=== PATIENT | male | born 1975 | race Caucasian/White ===

== ENCOUNTER 2017-05-23 05:36 | Outpatient (CLI) | payer OTHER ==
[~2017-05-23] VITALS: Ht 185.4 cm; Wt 97.5 kg
== END 2017-05-23 09:41 ==
LOC: PREOP 05:36
PROVIDERS: ATTEND Surgery
DX: Z01.818 Encounter for other preprocedural examination (principal); Z12.11 Encounter for screening for malignant neoplasm of colon

== ENCOUNTER 2017-05-25 07:08 | Day surgery (SDC) | payer OTHER ==
[~2017-05-25] VITALS: Ht 185.4 cm; Wt 97.5 kg
[2017-05-25] MEDS ORDERED: NS IV 500 ML 500 ML IV PRN (07:20)
[2017-05-25 07:35] VITALS: BP 147/91
[2017-05-25] MEDS ORDERED: MIDAZOLAM 2 MG/2 ML (VERSED) VIAL ONE ×4 (07:52→07:53)
[2017-05-25] MEDS ORDERED: fentaNYL INJECTION 100 MCG/2 ML AMP ONE ×2 (07:52)
--- NOTE | 2017-05-25 07:55 | Conscious Sedation/ASA ---
Conscious Sedation Pre-Proced Time Reviewed: 07:55 ASA Class: 1 Airway Mallampati Classification: (poarch appropriate class) I. II. III, IV Lungs Heart ASA score ASA 1: a normal healthy patient ASA 2: a patient with a mild systemic disease (mid diabetes, controlled hypertension, obesity ASA 3: a patient with a severe systemic disease that limits activity (angina , COPD, prior Myocardial infarction) ASA 4: a patient with an incapacitating disease that is a constant threat to life (CHF, renal failure) ASA 5: a moribund patient not expected to survive 24 hrs. (ruptured aneurysm) ASA 6: a declared brain patient whose organs are being harvested. For emergent operations, add the letter E after the classification Grade 1 Sedation Plan: Discussed options with patient/fam Note The patient is an appropriate candidate to undergo the planned procedure, sedation, and anesthesia. The patient immediately re-assessed prior to indication. COREY PENNY MD May 25, 2017 7:55 am
[2017-05-25] MEDS: fentaNYL INJECTION 100 MCG/2 ML AMP IVP PRN ×2 (07:58→08:01)
[2017-05-25] MEDS: MIDAZOLAM 2 MG/2 ML (VERSED) VIAL IVP PRN ×3 (08:00→08:04)
--- NOTE | 2017-05-25 08:13 | Endo Procedure Record ---
Endo Procedure Report Date of Procedure May 25, 2017 Surgeon (s) COREY PENNY MD Post Procedure/Op Diagnosis normal colonoscopy Procedure Performed colonoscopy to cecum Description of Procedure Anesthesia Type: Conscious Sedation Specimen(s) collected/removed none Description of the Procedure Indication for procedure: This gentleman came in for a screening colonoscopy. His father suffered colon cancer in his early 50s. Informed consent was obtained after reviewing the procedure in detail. Description of procedure: He was placed in left lateral edematous position and his vital signs were monitored. Conscious sedation was achieved using Versed and fentanyl. Digital rectal examination was unremarkable. The colonoscope was then introduced into the rectum and advanced all the way up to the cecum. the scope was then withdrawn slowly and the mucosa examined in a systematic fashion. There was no abnormality He tolerated the procedure well and was taken back to the nursing area in a stable condition Impression: Normal screening colonoscopy. Positive family history. Recommend repeating in 5 years and of dictation Copies To: ALLIE CONNER XAVIER M MD May 25, 2017 8:13 am
--- NOTE | 2017-05-25 08:14 | Discharge Inst-Simple/Standard ---
Discharge Inst-Standard Discharge Medications New, Converted or Re-Newed RX: Other Patient Instructions/Follow Up Plan of Care/Instructions/FU: repeat colonoscopy in 5 years. To return for hernia surgery as scheduled Activity as Tolerated: Yes Discharge Diet: No Restrictions COREY PENNY MD May 25, 2017 8:14 am
[2017-05-25 08:45] VITALS: BP 128/88
[2017-05-25 09:03] VITALS: BP 119/65
[2017-05-25 09:05] VITALS: BP 119/65
== END 2017-05-25 09:08 | disposition home or self-care (01) ==
LOC: ENDO 07:08
PROVIDERS: ATTEND Surgery
DX: Z12.11 Encounter for screening for malignant neoplasm of colon (principal); Z80.0 Family history of malignant neoplasm of digestive organs; K40.90 Unilateral inguinal hernia, without obstruction or gangrene, not specified as recurrent

== ENCOUNTER 2017-05-25 07:11 | Outpatient (CLI) | payer OTHER ==
[~2017-05-25] VITALS: Ht 185.4 cm; Wt 97.5 kg
[2017-05-25 08:58] LABS: BASOPHILS % (AUTO) 1 % (0-10); EOSINOPHILS # (AUTO) 0.1 10^3/uL (0.0-0.3); EOSINOPHILS % (AUTO) 2 % (0-10); LYMPHOCYTES # (AUTO) 1.5 X 10^3 (1.0-4.0); LYMPHOCYTES % (AUTO) 28 % (12-44); MEAN CORPUSCULAR HEMOGLOBIN 29 PG (25-34); MEAN CORPUSCULAR HGB CONC 35 G/DL (32-36); MEAN CORPUSCULAR VOLUME 82 FL (80-99); MEAN PLATELET VOLUME 11.5 FL (7.4-10.4); MONOCYTES # (AUTO) 0.8 X 10^3 (0.0-1.0); MONOCYTES % (AUTO) 14 % (0-12); NEUTROPHILS % (AUTO) 55 % (42-75); PLATELET COUNT 176 10^3/uL (130-400); RED BLOOD COUNT 5.51 10^6/uL (4.35-5.85); RED CELL DISTRIBUTION WIDTH 13.1 % (10.0-14.5); WHITE BLOOD COUNT 5.4 10^3/uL (4.3-11.0)
== END 2017-05-25 09:04 | disposition home or self-care (01) ==
LOC: PREOP 07:11
PROVIDERS: ATTEND Surgery
DX: Z01.812 Encounter for preprocedural laboratory examination (principal); Z11.2 Encounter for screening for other bacterial diseases; K40.90 Unilateral inguinal hernia, without obstruction or gangrene, not specified as recurrent
CPT/HCPCS: 36415; 85025; 87081

== ENCOUNTER 2017-06-08 07:40 | Day surgery (SDC) | payer OTHER ==
[~2017-06-08] VITALS: Ht 185.4 cm; Wt 97.5 kg
[2017-06-08] MEDS ORDERED: ceFAZolin 2 GM/50 ML NS 50 ML ONE (07:42)
[2017-06-08] MEDS ORDERED: ceFAZolin 2 GM/NS 50 ML IV ONE (08:00)
--- NOTE | 2017-06-08 08:30 | Progress Note-Pre Operative ---
Pre-Operative Progress Note H&P Reviewed The H&P was reviewed, patient examined and no changes noted. Date Seen by Provider: May 17, 2017 Time Seen by Provider: 10:25 Date H&P Reviewed: Jun 08, 2017 Time H&P Reviewed: 08:30 Pre-Operative Diagnosis: left inguinal hernia COREY PENNY MD Jun 08, 2017 8:30 am
[2017-06-08] MEDS ORDERED: SEVOFLURANE (ULTANE) 15 ML INHAL SOLN ONE ×7 (08:39→10:56)
[2017-06-08] MEDS ORDERED: proPOfol 200 MG/20 ML (DIPRIVAN) VIAL IV ONE (08:39)
[2017-06-08] MEDS ORDERED: MIDAZOLAM 2 MG/2 ML (VERSED) VIAL ONE (08:39)
[2017-06-08] MEDS ORDERED: DEXAMETHASONE 10 MG/ML (DECADRON) 1 ML VIAL ONE (08:39)
[2017-06-08] MEDS ORDERED: LIDOCAINE PF 2% 5 ML (XYLOCAINE) VIAL ONE (08:39)
[2017-06-08] MEDS ORDERED: LACTATED RINGERS 1,000 ML IV ONE (08:39)
[2017-06-08] MEDS ORDERED: ONDANSETRON 4 MG/2 ML (SDV) Z0FRAN ONE (08:39)
[2017-06-08] MEDS ORDERED: fentaNYL INJECTION 100 MCG/2 ML AMP ONE ×2 (08:40→10:49)
[2017-06-08 08:46] VITALS: BP 136/85
[2017-06-08] MEDS ORDERED: BUP/EPI 0.5% 1:200,000 (MARCAINE) 10ML VIAL IJ ONE (08:50)
[2017-06-08] MEDS ORDERED: GLYCOPYRROLATE 0.2 MG/ML (ROBINUL) 2 ML VIAL ONE ×2 (09:40→10:39)
[2017-06-08] MEDS ORDERED: LACTATED RINGERS 1,000 ML IV PRN (09:43)
[2017-06-08] MEDS ORDERED: NEOSTIGMINE (BLOXIVERZ ) 1 MG/1ML 10 ML VIAL ONE (10:39)
--- NOTE | 2017-06-08 11:02 | Operative Report ---
Operative Report Date of Procedure/Surgery Jun 08, 2017 Surgeon (s) COREY PENNY MD Dental Appliance Repairer (s): not applicable Post-Operative Diagnosis direct left inguinal hernia Procedure Performed robotic assisted repair with mesh Description of Procedure Anesthesia Type: General Estimated blood loss (mL): minimal Specimen(s) collected/removed none Description of the Procedure Indication for procedure: This gentleman presented with a symptomatic, reducible left inguinal hernia. He was offered minimally invasive repair with robotic assistance and mesh reinforcement. Informed consent was obtained after reviewing the operative details and complications of hematoma, infection of the mesh and recurrence of the hernia. Description of the procedure: He was placed supine on the operative table and general anesthesia induced using an endotracheal tube. 2 g of Ancef were administered intravenously as prophylaxis against wound infection. Sequential compression devices were placed around his legs, to minimize the risk of venous thrombosis A Snow catheter was placed to decompress the bladder during surgery. It was removed at the end of the operation. Abdomen was prepared and draped in the usual sterile manner. A supraumbilical incision was made and pneumoperitoneum established using a Veress needle. Intra -abdominal pressure was maintained at 15 mmHg, using carbon dioxide insufflation. A 12 mm trocar was placed and anatomy visualized using a high definition, 3-dimensional laparoscope associated with Orteq system. A left inguinal hernia was identified. There was no hernia on the contralateral side. Under direct view, I placed an 8 mm trocar over each side of the abdomen and the patient was turned into steep November position, to displace loops of bowel out of the pelvis. The robotic system was then docked in place. Peritoneum was incised laterally, extending towards the median umbilical ligament. Inferior epigastric vessels were carefully preserved. Dissection was continued into the pre-peritoneal space, displaying the purse ligament. A large indirect hernia containing extrapolated tone in fact was encountered and reduced out of the inguinal canal. A defect was closed using 20V LOC sutures with robotic assistance, without any tension. The space was then reinforced with a medium, preformed polypropylene mesh measuring 11.4 x 8 cm in diameter. It was secured to the lateral abdominal muscles and Kwame's ligament using 2-0 Vicryl sutures with robotic assistance. Hemostasis was satisfactory. Peritoneum was then reconstituted using aq 2-0 LOC suture with robotic assistance. Pneumoperitoneum was deflated and the trocars were removed. The fascia over the incisions was closed using #1 Vicryl. Skin was closed using 4-0 Vicryl, in a subcuticular fashion. 0.5 percent Marcaine with epinephrine was infiltrated along the incisions, both pre-emptively and at the conclusion of the operation. He tolerated the procedure well, was extubated in the operative room and taken to the recovery room in a stable condition. Findings of the Procedure see operative report Allergies and Home Medications Allergies Coded Allergies: No Known Drug Allergies (Verified , 05/25/17) Home Medications No Active Prescriptions or Reported Meds COREY PENNY MD Jun 08, 2017 11:02 am
[2017-06-08] MEDS ORDERED: HYDR-3820 PO (11:03)
--- NOTE | 2017-06-08 11:04 | Discharge Inst-Simple/Standard ---
Discharge Inst-Standard Discharge Medications New, Converted or Re-Newed RX: RX on Chart Patient Instructions/Follow Up Plan of Care/Instructions/FU: Band-Aids off in 48 hours. Follow-up in 4 weeks. Activity as Tolerated: No Goal: no lifting or pushing over 20 pounds Discharge Diet: No Restrictions COREY PENNY MD Jun 08, 2017 11:04 am
[2017-06-08] MEDS ORDERED: MEPERIDINE (DEMEROL) INJ 50 MG/ML IVP PRN (11:15)
[2017-06-08] MEDS ORDERED: HYDROmorphone (DILAUDID) 2 MG/ML VIAL IVP PRN (11:15)
[2017-06-08] MEDS ORDERED: ONDANSETRON 4 MG/2 ML (SDV) Z0FRAN IVP PRN (11:15)
[2017-06-08] MEDS ORDERED: PROMETHAZINE INJ 25 MG/ML (PHENERGAN) AMP IVP PRN (11:15)
[2017-06-08] MEDS ORDERED: morphine INJ 10 MG/ML 1ML (SYR OR VIAL) IVP PRN (11:15)
[2017-06-08 11:55] VITALS: BP 128/70
[2017-06-08] MEDS ORDERED: HYDROcodone/APAP 10 MG/325 MG (LORTAB) TAB PO ONE ×2 (12:18→12:30)
[2017-06-08 12:25] VITALS: BP 117/55
[2017-06-08 12:55] VITALS: BP 114/59
[2017-06-08 13:00] VITALS: BP 114/59
== END 2017-06-08 13:05 | disposition home or self-care (01) ==
LOC: SDC 07:40
PROVIDERS: ATTEND Surgery
DX: K40.90 Unilateral inguinal hernia, without obstruction or gangrene, not specified as recurrent (principal); Z80.0 Family history of malignant neoplasm of digestive organs
CPT/HCPCS: 87081